=== PATIENT | male | born 1945 | race Caucasian/White ===

== ENCOUNTER 2019-08-07 10:58 | Emergency (ER) | payer MEDICARE, SELFPAY ==
--- NOTE | ~2019-08-07 | XR_ITS ---
EXAMINATION: [id number] INDICATION: Chest pain TECHNIQUE: A frontal view of the chest and four views of the left ribs were obtained. COMPARISON: 05/19/2018 FINDINGS: There is a small right pleural effusion with associated airspace opacity of the right lung base. The left lung is clear. The cardiomediastinal silhouette is normal. No pneumothorax is identifi ed. There is mild cortical irregularity at the anterolateral aspect of the left 10th rib. IMPRESSION: 1. Mild cortical irregularity at the anterolateral aspect of left 10th rib which could reflect nondis placed fracture. 2. Small right pleural effusion with associated right basilar airspace opacities, likely atelectasis. Reviewed, dictated and finalized at location B. IMPRESSION: 1. Mild cortical irregularity at the anterolateral aspect of left 10th rib whic h could reflect nondisplaced fracture. 2. Small right pleural effusion with associated right basilar airspace opacitie s, likely atelectasis.
[2019-08-07 11:08] VITALS: BP 146/48; PULSE 64; RESP 20; TEMP 36.3; O2SAT 100
--- NOTE | 2019-08-07 11:16 | ED.GENADULT ---
HPI - General Adult General Chief complaint: Fall Stated complaint: Rib Injury Time Seen by Provider: 08/07/19 11:20 Source: patient and RN notes reviewed Mode of arrival: ambulatory Limitations: no limitations History of Present Illness HPI narrative: 74 year old male presents to express care with complaints of pain to he left side of his chest from falling out of chair at home this past .Patient states that he has a swivel chair at home and that he fell out of chair onto the floor, unsure if he actually hit left chest on floor, he tried to brace his fall with his knee and hands.Patient states some discomfort to the left anterior lateral chest when he takes a deep breath. Patient states that he lives alone he was recently in [facility] for a bone infection in his right foot, where he had to have 2 toes removed. Patient states that he has appt with his PCP on this Wednesday. MD complaint: fell out of chair at home Onset (ago): day(s) (5) Location: chest Radiation: non-radiation Severity: mild Severity scale (1-10): 1 Quality: aching Pain Consistency: intermittent Exacerbating factors: movement Associated symptoms: chest pain (left anterior lateral rib region) Treatments prior to arrival: none Related Data Home Medications Medication Instructions Recorded Confirmed apixaban [Eliquis] 5 mg PO BID 08/07/19 08/07/19 aspirin 81 mg PO DAILY 08/07/19 08/07/19 diltiazem HCl 180 mg PO DAILY 08/07/19 08/07/19 doxazosin 4 mg PO DAILY 08/07/19 08/07/19 furosemide 40 mg PO DAILY 08/07/19 08/07/19 gabapentin 300 mg PO QID 08/07/19 08/07/19 insulin aspart U-100 [Novolog 15 unit SUBCUT DAILY 08/07/19 08/07/19 Flexpen U-100 Insulin] insulin aspart U-100 [Novolog 20 unit SUBCUT BID 08/07/19 08/07/19 Flexpen U-100 Insulin] insulin glargine [Lantus U-100 60 unit SUBCUT HS 08/07/19 08/07/19 Insulin] latanoprost (PF) 1 drp OPHTHALMIC (EYE) QPM 08/07/19 08/07/19 losartan 100 mg PO DAILY 08/07/19 08/07/19 metformin 1,000 mg PO BID 08/07/19 08/07/19 omega 2-lbf-grb-fish oil [Fish Oil] 1 cap PO BID 08/07/19 08/07/19 rosuvastatin 20 mg PO DAILY 08/07/19 08/07/19 spironolactone 25 mg PO DAILY 08/07/19 08/07/19 Allergies Allergy/AdvReac Type Severity Reaction Status Date / Time sulfamethoxazole Allergy Intermediate TONGUE Verified 08/07/19 11:21 SWELLS trimethoprim Allergy Intermediate TONGUE Verified 08/07/19 11:21 SWELLS niacin Allergy Mild ITCHING Verified 08/07/19 11:21 Review of Systems Review of Systems: Narrative: CONSTITUTIONAL: Denies fever, chills, or sweats. EYES: Denies visual changes, redness, or discharge. ENT: Denies rhinorrhea, congestion, sore throat, or otalgia. CARDIOVASCULAR:Voices left lateral chest pain rib region, denies palpitations, or edema. RESPIRATORY: Denies cough or dyspnea. GASTROINTESTINAL: Denies abdominal pain, nausea, vomiting, or diarrhea. GENITOURINARY: Denies dysuria or hematuria. SKIN: Denies rash or itching. MUSCULOSKELETAL: Denies back pain, joint pain, or myalgia. NEUROLOGIC: Denies headache, numbness, or weakness. PSYCHIATRIC: Denies anxiety or depression. All systems reviewed & are unremarkable except as noted in HPI and below PMFSH Past Medical History Medical History (Updated 08/09/19 @ 14:43 by Roxanne Hoyos NP) Amputated great toe of right foot CVA (cerebral vascular accident) Diabetes Eczema Hammer toe of left foot Hyperlipidemia Hypertension Surgical History Surgical History (Updated 08/07/19 @ 11:35 by Roxanne Hoyos NP) History of cataract surgery Social History Social History (Updated 08/09/19 @ 14:28 by Roxanne Hoyos NP) Smoking status: Former smoker Smoking end date: 05/17/79 Living arrangements: alone Occupation/Education: retired Gender identity (if verbalized by the patient): Male Comments At time of signature, agree with nursing past medical, surgical, social and family history. There is no relevant fa
== END 2019-08-07 12:20 | disposition home or self-care (01) ==
PROVIDERS: Emergency Provider Registered Nurse; PCP Family Medicine
DX: J90 Pleural effusion, not elsewhere classified (principal); S22.32XA Fracture of one rib, left side, initial encounter for closed fracture; W07.XXXA Fall from chair, initial encounter; Z87.891 Personal history of nicotine dependence; Z86.73 Personal history of transient ischemic attack (TIA), and cerebral infarction without residual deficits; E11.9 Type 2 diabetes mellitus without complications; E78.5 Hyperlipidemia, unspecified; I10 Essential (primary) hypertension; Z89.411 Acquired absence of right great toe; Z79.4 Long term (current) use of insulin; Z79.84 Long term (current) use of oral hypoglycemic drugs; I48.91 Unspecified atrial fibrillation; E78.00 Pure hypercholesterolemia, unspecified; E11.40 Type 2 diabetes mellitus with diabetic neuropathy, unspecified
CPT/HCPCS: 71101; 99213; G0463

== ENCOUNTER 2021-08-09 11:00 | Emergency (ER) | payer MEDICARE, SELFPAY ==
--- NOTE | ~2021-08-09 | XR_ITS ---
EXAMINATION:[id number] DATE: 08/09/2021 12:02 INDICATION: 2 days of left-sided neck pain TECHNIQUE: AP, lateral, lateral swimmers and odontoid views of the cervical spine are provided. COMPARISON: None FINDINGS: Alignment is normal. Odontoid is intact. Normal atlantoaxial interval. Body and disc heights are normal from C2 through C5. The endplates in the more caudal cervical spine are poorly visualized due to patient kyphosis and superimposition of the shoulders. Bilateral multile jose cervical facet osteoarthritis. Atherosclerotic calcific location of the region of the right carot id bulb Prevertebral soft tissues are otherwise normal. There are bridging osteophytes at multiple le vels in the more caudal thoracic, consistent with diffuse idiopathic skeletal hyperostosis (DISH). Th e visualized portions of the upper lungs are clear. IMPRESSION: 1. Mild cervical spondylosis. Assessment is significantly limited below the level of C5 due to combin ation of the thoracic kyphosis and superimposition of the shoulders on the lateral projection. Reviewed, dictated and finalized at location A. IMPRESSION: 1. Mild cervical spondylosis. Assessment is significantly limited below the lev el of C5 due to combination of the thoracic kyphosis and superimposition of the shoulders on the lateral projection.
[2021-08-09 11:08] VITALS: BP 171/51; PULSE 69; RESP 20; TEMP 36.6; O2SAT 100
--- NOTE | 2021-08-09 11:49 | ED.GENADULT ---
HPI - General Adult General Chief complaint: Neck Pain/Injury Stated complaint: Neck Pain Time Seen by Provider: 08/09/21 11:49 Source: patient Mode of arrival: ambulatory Limitations: no limitations History of Present Illness HPI narrative: 76-year-old male presented for complaint of left sided neck pain, onset yesterday. Denies radiating pain, numbness, tingling or weakness of LUE. Pain only with movement of neck. Denies known injury. Denies fall. He was evaluated by a chiropractor yesterday which has helped for similar pain in the past. Denies improvement. Has not taken anything for pain. Related Data Home Medications Medication Instructions Recorded Confirmed apixaban [Eliquis] 5 mg PO BID 08/07/19 08/09/21 diltiazem HCl 180 mg PO DAILY 08/07/19 08/09/21 doxazosin 4 mg PO DAILY 08/07/19 08/09/21 furosemide 40 mg PO DAILY 08/07/19 08/09/21 gabapentin 300 mg PO QID 08/07/19 08/09/21 insulin aspart U-100 [Novolog 15 unit SUBCUT DAILY 08/07/19 08/09/21 Flexpen U-100 Insulin] insulin aspart U-100 [Novolog 20 unit SUBCUT BID 08/07/19 08/09/21 Flexpen U-100 Insulin] insulin glargine [Lantus U-100 60 unit SUBCUT HS 08/07/19 08/09/21 Insulin] latanoprost (PF) 1 drp OPHTHALMIC (EYE) QPM 08/07/19 08/09/21 losartan 100 mg PO DAILY 08/07/19 08/09/21 metformin 1,000 mg PO BID 08/07/19 08/09/21 omega 2-sdu-rjj-fish oil [Fish Oil] 1 cap PO BID 08/07/19 08/09/21 rosuvastatin 20 mg PO DAILY 08/07/19 08/09/21 spironolactone 25 mg PO DAILY 08/07/19 08/09/21 Allergies Allergy/AdvReac Type Severity Reaction Status Date / Time sulfamethoxazole Allergy Intermediate TONGUE Verified 08/09/21 11:25 SWELLS trimethoprim Allergy Intermediate TONGUE Verified 08/09/21 11:25 SWELLS niacin Allergy Mild ITCHING Verified 08/09/21 11:25 Review of Systems Review of Systems: CONSTITUTIONAL: Denies body aches, fever, chills EYES: Denies visual changes ENT: Denies rhinorrhea, congestion CARDIOVASCULAR: Denies chest pain, palpitations, or edema. RESPIRATORY: Denies cough or dyspnea. GASTROINTESTINAL: Denies abdominal pain, nausea, vomiting, or diarrhea. SKIN: Denies rash, itching, or wounds. MUSCULOSKELETAL: reports left sided neck pain NEUROLOGIC: Denies headache, numbness, tingling, or weakness. PSYCH: Denies depression or anxiety. All systems reviewed & are unremarkable except as noted in HPI and below PMFSH Past Medical History Medical History Amputated great toe of right foot CVA (cerebral vascular accident) Diabetes Eczema Hammer toe of left foot Hyperlipidemia Hypertension Surgical History Surgical History History of cataract surgery Social History Social History Smoking status: Former smoker Smoking end date: 05/17/79 Gender identity (if verbalized by the patient): Male Comments At time of signature, I have reviewed and agree with nursing past medical, surgical, social and family history unless otherwise noted. Please see nursing chart for further information. There is no relevant family history pertinent to the presenting complaint Exam Narrative: GENERAL: Appears in pain HEAD: Normocephalic, atraumatic. EYES: PERRLA, conjunctivae clear NECK: Supple. CHEST: Speaks in full sentences. No respiratory distress. HEART: Regular rate and rhythm. Normal and equal peripheral pulses. EXTREMITIES: kyphotic neck, LUE has normal strength and sensation, normal range of motion of LUE with flexion/extension/rotation at shoulder; endorses pain with limited ROM of neck. Pain to left lateral trapezius. No edema or ecchymosis, No vertebral point tenderness. No open wounds, skin tenting, or obvious deformity; alignment normal, pulse palpable and equal bilaterally, skin warm, dry, pink. Capillary refill less than 3 seconds. SKIN: Warm, dry, no rash.
== END 2021-08-09 12:34 | disposition home or self-care (01) ==
PROVIDERS: Emergency Provider Nurse Practitioner Family; PCP Family Medicine
DX: M54.2 Cervicalgia (principal); Z87.891 Personal history of nicotine dependence; Z86.73 Personal history of transient ischemic attack (TIA), and cerebral infarction without residual deficits; E11.9 Type 2 diabetes mellitus without complications; E78.5 Hyperlipidemia, unspecified; I10 Essential (primary) hypertension; Z89.411 Acquired absence of right great toe
CPT/HCPCS: 72040; 99213; G0463